=== PATIENT | female | born 1965 | race Caucasian/White ===

== ENCOUNTER 2021-02-21 13:45 | Emergency (ER) | payer OTHER ==
[~2021-02-21] VITALS: Ht 167.6 cm; Wt 54.0 kg
--- NOTE | 2021-02-21 15:45 | RAD ---
EXAM: Left wrist, 3 views; left forearm, 2 views. HISTORY: Injury. COMPARISON: None. FINDINGS: 3 views of the left wrist and 2 views of the lentiform are obtained. There is a mildly disp laced distal radial metaphyseal fracture and fracture involving the tip of the ulnar styloid. There i s wrist soft tissue swelling. IMPRESSION: Minimally displaced distal radial metaphyseal fracture and ulnar styloid fracture. Electronically signed by: Terrie Quick MD (02/21/2021 3:43 PM) [id number]
--- NOTE | 2021-02-21 15:49 | PHYS DOC ---
General Adult EDM: Chief Complaint: WRIST PAIN HPI: HPI: Patient is a 55-year-old female who presents to the emergency department for left wrist pain after falling onto it today. Patient rates pain 5 out of 10. Is worse with movement. No treatment prior to arrival. Patient denies any decreased range of motion or wounds, decreased sensation to her extremity. (HOWARD MTZ APRN) Review of Systems: Review of Systems: Musculoskeletal: See HPI Integument: HPI Neurologic: See HPI (HOWARD MTZ APRN) Physical Exam: PE: Constitutional: Well developed, well nourished, no acute distress, non-toxic appearance. [] HENT: Normocephalic, atraumatic, bilateral external ears normal, oropharynx moist, no oral exudates, nose normal. [] Eyes: PERRL, EOMI, conjunctiva normal, no discharge. [] Neck: Normal range of motion, no stridor Cardiovascular: Normal peripheral perfusion Lungs & Thorax: Normal work of breathing, no tachypnea Abdomen: Soft and flat Skin: Warm, dry, no erythema, no rash. [] Back: Normal range of motion Extremities: No tenderness, no cyanosis, no clubbing, ROM intact, no edema. Left wrist: Mild swelling noted to left wrist, pain with palpation to wrist, range of motion intact, neuro intact, no obvious wounds or deformities Neurologic: Alert and oriented X 3, normal motor function, normal sensory function, no focal deficits noted. [] Psychologic: Affect normal, judgement normal, mood normal. [] (HOWARD MTZ APRN) EKG: EKG: [] (HOWARD MTZ APRN) Radiology/Procedures: Radiology/Procedures: []PROCEDURE: WRIST 3V LEFT EXAM: Left wrist, 3 views; left forearm, 2 views. HISTORY: Injury. COMPARISON: None. FINDINGS: 3 views of the left wrist and 2 views of the lentiform are obtained. There is a mildly displaced distal radial metaphyseal fracture and fracture involving the tip of the ulnar styloid. There is wrist soft tissue swelling. IMPRESSION: Minimally displaced distal radial metaphyseal fracture and ulnar sty loid fracture. Electronically signed by: Terrie Quick MD (02/21/2021 3:43 PM) [id number] DICTATED AND SIGNED BY: TERRIE QUICK MD DATE: 02/21/21 1544 CC: MANDI MCGRAW DO; EMERGENCY,DEPARTMENT; NON,STAFF ~MTH0 0 (HOWARD MTZ APRN) Heart Score: C/O Chest Pain: N/A Risk Factors: Risk Factors: DM, Current or recent (<one month) smoker, HTN, HLP, family history of CAD, obesity. Risk Scores: Score 0 - 3: 2.5% MACE over next 6 weeks - Discharge Home Score 4 - 6: 20.3% MACE over next 6 weeks - Admit for Clinical Observation Score 7 - 10: 72.7% MACE over next 6 weeks - Early Invasive Strategies (HOWARD MTZ APRN) Course & Med Decision Making: Course & Med Decision Making Pertinent Labs and Imaging studies reviewed. (See chart for details) [] Patient presents to the emergency department for left wrist pain after falling onto it. An x-ray was performed that showed radial and ulnar fracture that is mildly displaced. No reduction needed. Patient's wrist placed in a short arm splint. Neurovascularly intact pre and post splint placement. Patient given a follow information for orthopedic doctor. Patient given instructions on splint care.. Discharged with pain medication. I discussed with patient all findings and diagnostic testing as well as the need to follow-up with PCP for further evaluation and treatment or return to the ER if any new or worsening symptoms. Strict return precautions were also discussed at length. Patient voiced understanding and agreement with the plan. Patient is hemodynamically stable at the time of disposition. (HOWARD MTZ APRN) Dragon Disclaimer: Dragon Disclaimer: This electronic medical record was generated, in whole or in part, using a voice recognition dictation system. (HOWARD MTZ APRN) Attending Co-Sign The patient was seen and interviewed as well as examined at the bedside. The chart was reviewed. The case was discussed. Agree with the plan of care. (MANDI MCGRAW DO) Departure Departure: Impression: Primary Impression: Radius fracture Qualified Codes: S52.592A - Other fractures of lower end of left radius, initial encounter for closed fracture Additional Impression: Ulna styloid fracture, closed Qualified Codes: S52.612A - Displaced fracture of left ulna styloid process, initial encounter for closed fracture Disposition: HOME / SELF CARE / HOMELESS Condition: GOOD Referrals: NON,STAFF (PCP) Patient Instructions: Cast or Splint Care, [id number], Radial Fracture Additional Instructions: [facility] [phone] please call this number tomorrow to set up a follow-up appointment. You were seen in the ER today for a fracture or broken bone. You had a splint placed to help with pain and healing. You will need to follow-up with the orthopedic doctors in the orthopedic clinic as soon as possible. Please see attached information regarding follow-up physician. You should perform range of motion exercises to prevent stiffness of your joints. Splints help with the pain and can promote healing but immobility can cause chronic pain over time. Please refer to these attached instructions regarding range of motion exercises. Keep the splint clean and dry avoid getting it wet. If the splint gets wet you will need to have it replaced. You should use ice and elevation to help with the swelling and pain. For the first 24 hours apply ice 20 minutes on 20 minutes off 4 times per day. Ensure that ice is in a plastic bag as to not get the splint wet. You may take NSAID medications (Tylenol, ibuprofen, naproxen) to help with the pain. For severe pain you are being discharged home with [place]. This medication is hydrocodone and Tylenol in the combination tablet. Do not take any additional Tylenol with this medication. This medication may cause sedation do not take need to be alert, driving a vehicle or with alcohol. Please return to the emergency department if you develop any of the following symptoms: Increasing pain that does not improve with treatments. New numbness or tingling Warmth, redness, skin discoloration, skin breakdown, drainage from under splint or near splinted area. Increasing inability to move your extremity or digits. Foul odor coming from splint Fevers or chills Nausea or vomiting Persistent lightheadedness We would be happy to see you for any other concerning symptoms regarding your splinted extremity. Scripts Hydrocodone Bit/Acetaminophen (HYDROCODONE-APAP 5-325 ) 1 Each Tablet 1 TAB PO PRN Q6HRS PRN for PAIN for 2 Days, #8 TAB 0 Refills Prov: HOWARD MTZ APRN 02/21/21 HOWARD MTZ APRN Feb 21, 2021 15:49 MANDI MCGRAW DO Feb 22, 2021 06:48
[2021-02-21] MEDS ORDERED: HYDR-2155 PO (15:57)
[2021-02-21] MEDS ORDERED: HYDROcodone/APAP 5/325MG 1 TAB TABLET PO ONE (16:00)
== END 2021-02-21 16:57 | disposition home or self-care (01) ==
LOC: ER 13:45
DX: S52.592A Other fractures of lower end of left radius, initial encounter for closed fracture (principal); S52.612A Displaced fracture of left ulna styloid process, initial encounter for closed fracture; W18.39XA Other fall on same level, initial encounter; Y93.89 Activity, other specified; Y92.89 Other specified places as the place of occurrence of the external cause; Y99.8 Other external cause status
CPT/HCPCS: 29125; 73090; 73110; 99284